=== PATIENT | male | born 1940 | race Caucasian/White ===

== ENCOUNTER → 2020-03-14 | Outpatient (CLI) | payer MEDICARE, BC ==
[~2020-03-14] MED LIST: ALBU2.5V8 IH; ASPI81TA59 PO; ATOR40TA59 PO; FLUT9.9S NS; FURO-69 PO; LISI-334 PO; METO25TA2 PO; OMEP40CA45 PO; SPIR25TA PO; TAMS0.4C97 PO
== END ==
LOC: LAB 07:52
PROVIDERS: ATTEND Registered Nurse
DX: Z11.59 Encounter for screening for other viral diseases (principal)
CPT/HCPCS: U0003-CS

== ENCOUNTER → 2020-03-18 | Day surgery (SDC) | payer MEDICARE, BC ==
[~2020-03-18] MED LIST changes: +IPRATRPIUM/ALBUTEROL 0.5/2.5MG 3 ML NEBU. NEB PRN; +IV RINGERS SOLUTION,LACTATED 1,000 ML IV SCH; +ONDANSETRON PF 4 MG/2 ML VIAL. IV PRN; +PROPOFOL 10,000 MCG/ML (20ML) VIAL IV ONE
[2020-03-18 10:35] VITALS: BP 116/79
--- NOTE | 2020-03-19 17:07 | PATHOLOGY ---
[facility] Accession Number: [id number] . 01 Material submitted: . PART A: duodenum - DUODENAL BIOPSY PART B: stomach - GASTRIC BIOPSY PART C: cecum - CECAL POLYP X2 PART D: colon - ASCENDING POLYP. Modifiers: ascending PART E: colon - TRANSVERSE POLYP. Modifiers: transverse . 02 Diagnosis: A. Duodenal biopsy: - No significant pathologic abnormalities. . B. Gastric biopsies: - Very mild chronic gastritis. . C. Colon biopsies, cecal polyp x2: - Tubular adenomas. . D. Colon biopsies, ascending colon polyp: - Tubular adenoma. . E. Colon biopsies, transverse colon polyp: - Tubular adenoma. (JPM:staci; 03/19/2020) [facility] [place] 03/19/2020 0921 Local . 02 Comment: Sections of the duodenal biopsy reveal a segment of small intestine mucosa. Where best oriented, the mucosal villi show no sprue-like changes or significant inflammatory changes. . Sections of the gastric biopsy reveal segments of gastric antral/body transition mucosa showing congestion and very mild chronic inflammation. A properly controlled immunoperoxidase stain for Helicobacter is negative for Helicobacter organisms. . Sections of the cecal biopsy reveal tubular adenomas showing no high grade dysplasia or evidence of malignancy. . Sections of the ascending colon biopsy reveal four segments of tubular adenoma showing no high grade dysplasia or evidence of malignancy. . Sections of the transverse colon biopsy reveal two segments of tubular adenoma showing no high grade dysplasia or evidence of malignancy. (JPM:staci 03/19/2020) . Special stain performed: Immunoperoxidase stain for Helicobacter on Electronically signed: . Epi Pat MD, Pathologist NPI- [id number] . 01 Gross description: . A. The specimen is received in formalin labeled "George Garcia, Walter, celiac anemia duodenal biopsy" and consists of a fragment of pink-zhang tissue measuring 0.3 x 0.3 x 0.3 cm which is entirely submitted in A1. . B. The specimen is received in formalin labeled "Walter Vazquez Jr, gastric biopsy anemia" and consists of a fragment of zhang tissue measuring 0.4 x 0.3 x 0.2 cm which is entirely submitted in B1. . C. The specimen is received in formalin labeled "Walter Vazquez Jr, cecal polyp" and consists of multiple polypoid segments of zhang tissue measuring 1.1 x 0.6 x 0.3 cm in aggregate which are entirely submitted in C1. . D. The specimen is received in formalin labeled "Walter Vazquez Jr, ascending polyps" and consists of multiple fragments of zhang tissue measuring 0.9 x 0.5 x 0.2 cm in aggregate which are entirely submitted in D1. . E. The specimen is received in formalin labeled "Walter Vazquez Jr, transverse polyp" and consists of multiple fragments of zhang tissue measuring 0.4 x 0.2 x 0.2 cm in aggregate which are entirely submitted in E1. (SHELDON; 03/18/2020) MARIA R/MARIA R 03/18/2020 1733 Local . 02 Pathologist provided ICD-10: K29.50, D12.0, D12.2, D12.3, Z12.11 . 02 CPT . 715530, 938905, 046745, 451423, 320533, C08260 Specimen Comment: A courtesy copy of this report has been sent to [phone], [phone] Specimen Comment: 0 Specimen Comment: Report sent to / DR ANDERSON Performed at: 01 [facility] [address] [facility] [address], [place] [id number] MD Ilia Avery MD Phone: [phone] Performed at: 02 [facility] [address] [place], [place] [id number] MD Epi Pat MD Phone: [phone]
== END | disposition home or self-care (01) ==
LOC: SURG 08:16
PROVIDERS: ATTEND Emergency Medicine
DX: D50.9 Iron deficiency anemia, unspecified (principal); D12.0 Benign neoplasm of cecum; D12.2 Benign neoplasm of ascending colon; D12.3 Benign neoplasm of transverse colon; K57.30 Diverticulosis of large intestine without perforation or abscess without bleeding; K29.50 Unspecified chronic gastritis without bleeding; K44.9 Diaphragmatic hernia without obstruction or gangrene; K31.89 Other diseases of stomach and duodenum; I10 Essential (primary) hypertension; I49.9 Cardiac arrhythmia, unspecified; J44.9 Chronic obstructive pulmonary disease, unspecified; K21.9 Gastro-esophageal reflux disease without esophagitis; F41.9 Anxiety disorder, unspecified; M19.90 Unspecified osteoarthritis, unspecified site; I48.91 Unspecified atrial fibrillation; F32.9 Major depressive disorder, single episode, unspecified; Z79.82 Long term (current) use of aspirin; Z79.899 Other long term (current) drug therapy; Z86.010 Personal history of colon polyps; Z98.890 Other specified postprocedural states
CPT/HCPCS: 43239; 45380; 45385; J2704; J7120; 88305; 88342

== ENCOUNTER → 2020-11-24 | Outpatient (CLI) | payer MEDICARE, BC ==
[2020-03-18 10:35] VITALS: BP 116/79
[~2020-11-24] MED LIST changes: -IPRATRPIUM/ALBUTEROL 0.5/2.5MG 3 ML NEBU. NEB PRN; -IV RINGERS SOLUTION,LACTATED 1,000 ML IV SCH; -LISI-334 PO; +LISI20TA18 PO; -ONDANSETRON PF 4 MG/2 ML VIAL. IV PRN; -PROPOFOL 10,000 MCG/ML (20ML) VIAL IV ONE
--- NOTE | 2020-11-24 16:30 | RAD ---
EXAM: Left upper extremity venous Doppler sonogram. HISTORY: Pain and swelling. TECHNIQUE: Hernandez scale and color Doppler sonographic evaluation of the left upper extremity veins with spectral waveform analysis was performed. FINDINGS: There is normal color flow, normal compressibility and there are normal spectral waveforms in the left upper extremity veins. IMPRESSION: No Doppler evidence of upper extremity venous thrombosis. Electronically signed by: Roseann Riggs MD (11/24/2020 4:27 PM) [id number]
== END ==
LOC: US 14:53
PROVIDERS: ATTEND Family Medicine
DX: I82.602 Acute embolism and thrombosis of unspecified veins of left upper extremity (principal)
CPT/HCPCS: 93971

== ENCOUNTER 2021-05-13 17:29 | Emergency (ER) | payer MEDICARE, BC ==
[~2021-05-13] VITALS: Ht 175.3 cm; Wt 94.5 kg
[~2021-05-13 17:29] MED LIST changes: -OMEP40CA45 PO; +OMEP40CA7 PO
[2021-05-13 17:45] VITALS: BP 110/77
[2021-05-13] MEDS ORDERED: ONDANSETRON PF 4 MG/2 ML VIAL. IVP ONE (18:30)
--- NOTE | 2021-05-13 18:31 | PHYS DOC ---
Past History Past Medical History: CHF Additional Past Medical Histor: BPH; lung fibrosis; orthostatic B/P Past Surgical History: Other Additional Past Surgical Histo: abd hernia; wrist fx repair; cataract; lymph node removal Alcohol Use: None General Adult EDM: Chief Complaint: CONSTIPATION HPI: HPI: Patient is an 80 year old male who presents with 2 day history of constipation. Also reports associated symptoms of nausea, vomiting x 1, lower abdominal pain, and rectal pain when trying to stool. He has attempted using several over the counter laxatives and stool softeners without relief. Denies any recent use of narcotic medications. History of one previous hernia repair but denies other abdominal surgeries. Denies fevers/chills, chest pain, or hematochezia. Review of Systems: Review of Systems: Constitutional: Denies fever or chills Eyes: Denies redness or eye pain HENT: Denies nasal congestion or sore throat Respiratory: Denies cough or shortness of breath Cardiovascular: Denies chest pain or palpitations GI: Reports abdominal pain, nausea, vomiting, and constipation : Denies dysuria or hematuria Musculoskeletal: Denies back pain or joint pain Integument: Denies rash or skin lesions Neurologic: Denies headache, focal weakness or sensory changes Complete systems were reviewed and found to be within normal limits, except as documented in this note. Allergies: Allergies: Allergies Coded Allergies Type Severity Reaction Last Updated Verified No Known Drug Allergies 05/13/21 No Physical Exam: PE: Constitutional: Well developed, well nourished, no acute distress, non-toxic appearance HENT: Normocephalic, atraumatic Eyes: PERRL, EOMI, conjunctiva normal, no discharge Neck: Normal range of motion, no tenderness, supple Lungs & Thorax: No respiratory distress, equal chest rise and fall Abdomen: Moderate tenderness to palpation over the lower abdomen. Soft. Rectal: Skin: Warm, dry, no erythema, no rash Back: No tenderness, no CVA tenderness Extremities: No tenderness, ROM intact, no edema Neurologic: Alert and oriented X 3, normal motor function, normal sensory f unction, no focal deficits noted Psychologic: Affect normal, judgment normal Current Patient Data: Vital Signs: Vital Signs Date Time Temp Pulse Resp B/P (MAP) Pulse Ox O2 Delivery O2 Flow Rate FiO2 05/13/21 17:45 95.0 100 18 110/77 96 Room Air EKG: EK: 100 BPM, rhythm irregularly irregular, occasional PVCs, no ST segment elevation, QRS 116ms, QT/QTc 382ms/496ms Radiology/Procedures: Radiology/Procedures: PROCEDURE: CT ABD PEL W/ORAL CONTRST ONLY CT abdomen pelvis without contrast dated 05/13/2021. No comparison available. Clinical indication: Abdominal pain nausea vomiting and constipation. TECHNIQUE: Contiguous axial imaging the abdomen pelvis performed after the administration of oral contrast only. One or more of the following individualized dose reduction techniques were utilized for this examination: 1. Automated exposure control 2. Adjustment of the mA and/or kV according to patient size 3. Use of iterative reconstruction technique FINDINGS: Limited images of lung bases show patchy and linear opacity in the lower lobes, likely atelectasis. Heart size mildly enlarged. No pleural or pericardial effusion. Coronary artery calcifications. Large hiatal hernia. Solid abdominal viscera not well evaluated in the absence of contrast material. No apparent attenuation abnormality of the liver or spleen. Pancreas is somewhat atrophic. Adrenal glands and kidneys are unremarkable. No stone or hydronephrosis. There are calcified stones at the gallbladder neck. Low-density focus at the midpole right kidney, likely cyst. Partially opacified GI tract normal in caliber and contour. No focal bowel wall thickening. Scattered diverticula throughout the colon. No paracolonic inflammatory changes. There is a moderate amount stool at the rectal vault. Appendix normal in caliber. No ascites or lymphadenopathy. Evidence of prior right inguinal hernia repair. There is evidence of prior ventral hernia repair. No recurrent hernia defect. There is a small lobule fat density in the central mesentery that likely is related to fat necrosis. Images of pelvis show nondistended urinary bladder. Prostate gland mildly enlarged. No free fluid or pelvic adenopathy. Bone windows show no acute findings. Multilevel spondylosis. IMPRESSION: 1. No acute abnormality of abdomen or pelvis. Normal appendix. 2. Diverticulosis with no evidence of acute diverticulitis. 3. Cholelithiasis. 4. Moderate size hiatal hernia. 5. Fecal distention of the rectal vault. Electronically signed by: Saba Garland MD (05/13/2021 8:12 PM) UIC-ROBE Heart Score: C/O Chest Pain: N/A Course & Med Decision Making: Course & Med Decision Making 80 year old male presents with 2 day history of constipation and worsening abdominal pain. Labs and imaging obtained and posted to chart. CT imaging revealed a large amount of stool in the rectal vault and the patient was manually disimpacted with some relief of symptoms. Patient stable for discharge with outpatient follow-up with PCP. Discussed findings and plan with patient, who acknowledges understanding and agreement. [place] Disclaimer: Dragon Disclaimer: This electronic medical record was generated, in whole or in part, using a voice recognition dictation system. Departure Departure: Impression: Primary Impression: Fecal impaction in rectum Additional Impression: Nausea & vomiting Qualified Codes: R11.2 - Nausea with vomiting, unspecified Disposition: HOME / SELF CARE / HOMELESS Condition: STABLE Referrals: ERIC ANDERSON MD (PCP) Patient Instructions: Constipation, Adult, [id number], Fecal Impaction, Nausea and Vomiting, [id number] Additional Instructions: Take stool softener ("Colace 2 in 1" or "Pericolace") at night with 8oz glass of water to prevent constipation. Take laxative (GO-LYTELY) as needed if symptoms persist without adequate bowel movement Scripts Ondansetron (ONDANSETRON ODT) 4 Mg Tab.rapdis 1 TAB PO PRN Q6-8HRS PRN for NAUSEA, #16 TAB Prov: SABA HOLMAN DO 05/13/21 Sennosides/Docusate Sodium (Colace 2-in-1 Tablet) 1 Each Tablet 1-2 TAB PO QHS for Constipation prevention, #30 TAB 0 Refills Prov: SABA HOLMAN DO 05/13/21 Peg 3350/Na Sulf,Bicarb,Cl/Kcl (GOLYTELY SOLUTION) 4,000 Ml Soln.recon 4000 ML PO 1X PRN for CONSTIPATION, #4000 ML Prov: SABA HOLMAN DO 05/13/21 SABA HOLMAN DO May 13, 2021 18:31
[2021-05-13] MEDS ORDERED: IOHEXOL 240 MG/ML 50ML VIAL. ONE (18:38)
[2021-05-13 19:00] LABS: BASO # 0.1 x10^3/uL (0.0-0.2); BASO % 1 % (0-3); EOS # 0.1 x10^3/uL (0.0-0.7); EOS % 1 % (0-3); HEMOGLOBIN 14.1 g/dL (13.0-17.5); LYMPH # 1.2 x10^3/uL (1.0-4.8); LYMPH % 12 % (24-48); MEAN CORPUSCULAR HEMOGLOBIN 28 pg (25-35); MEAN CORPUSCULAR HGB CONC 33 g/dL (31-37); MEAN CORPUSCULAR VOLUME 85 fL (79-100); MONO % 10 % (0-9); NEUT # 7.3 x10^3uL (1.8-7.7); NEUT % 75 % (31-73); PLATELET COUNT 290 x10^3/uL (140-400); RED BLOOD COUNT 5.03 x10^6/uL (4.30-5.70); RED CELL DISTRIBUTION WIDTH 15.8 % (11.5-14.5); WHITE BLOOD COUNT 9.8 x10^3/uL (4.0-11.0)
[2021-05-13 19:18] LABS: CALCIUM 8.8 mg/dL (8.5-10.1); CREATININE 1.8 mg/dL (0.7-1.3); GFR 36.4; POTASSIUM 3.8 mmol/L (3.5-5.1)
[2021-05-13 19:53] LABS: ALBUMIN 3.7 g/dL (3.4-5.0); MAGNESIUM 2.1 mg/dL (1.8-2.4); TOTAL BILIRUBIN 0.5 mg/dL (0.2-1.0); TOTAL PROTEIN 7.5 g/dL (6.4-8.2)
--- NOTE | 2021-05-13 20:15 | RAD ---
CT abdomen pelvis without contrast dated 05/13/2021. No comparison available. Clinical indication: Abdominal pain nausea vomiting and constipation. TECHNIQUE: Contiguous axial imaging the abdomen pelvis performed after the administration of oral contrast only. One or more of the following individualized dose reduction techniques were utilized for this examinat ion: 1. Automated exposure control 2. Adjustment of the mA and/or kV according to patient size 3. Use of iterative reconstruction technique FINDINGS: Limited images of lung bases show patchy and linear opacity in the lower lobes, likely atelectasis. H eart size mildly enlarged. No pleural or pericardial effusion. Coronary artery calcifications. Large hiatal hernia. Solid abdominal viscera not well evaluated in the absence of contrast material. No apparent attenuati on abnormality of the liver or spleen. Pancreas is somewhat atrophic. Adrenal glands and kidneys are unremarkable. No stone or hydronephrosis. There are calcified stones at the gallbladder neck. Low-den sity focus at the midpole right kidney, likely cyst. Partially opacified GI tract normal in caliber and contour. No focal bowel wall thickening. Scattered diverticula throughout the colon. No paracolonic inflammatory changes. There is a moderate amount st ool at the rectal vault. Appendix normal in caliber. No ascites or lymphadenopathy. Evidence of prior right inguinal hernia repair. There is evidence of prior ventral hernia repair. No recurrent hernia defect. There is a small lobule fat density in the central mesentery that likely is related to fat ne crosis. Images of pelvis show nondistended urinary bladder. Prostate gland mildly enlarged. No free fluid or pelvic adenopathy. Bone windows show no acute findings. Multilevel spondylosis. IMPRESSION: 1. No acute abnormality of abdomen or pelvis. Normal appendix. 2. Diverticulosis with no evidence of acute diverticulitis. 3. Cholelithiasis. 4. Moderate size hiatal hernia. 5. Fecal distention of the rectal vault. Electronically signed by: Sidney Garland MD (05/13/2021 8:12 PM) [facility]
[2021-05-13] MEDS ORDERED: PEG4000S8 PO (20:49)
[2021-05-13] MEDS ORDERED: SENN-121 PO (20:49)
[2021-05-13] MEDS ORDERED: ONDA4TAB12 PO (20:50)
[2021-05-13 21:00] LABS: CLARITY,URINE CLEAR; COLOR,URINE YELLOW
[2021-05-13 21:01] LABS: BACTERIA,URINE 0 /HPF (0-FEW); BILIRUBIN,URINE NEG (NEG); GLUCOSE,URINE NEG (NEG); HYALINE CASTS, URINE FEW /HPF; NITRITE,URINE NEG (NEG); RBC,URINE 0 /HPF (0-2); SQUAMOUS EPITHELIAL CELL,UR FEW /LPF; UROBILINOGEN,URINE 0.2 mg/dL (0.2 mg/dL); WBC,URINE 0 /HPF (0-4)
--- NOTE | 2021-05-14 04:46 | EKG ---
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
== END 2021-05-13 21:11 | disposition home or self-care (01) ==
LOC: ER 17:29
DX: K56.41 Fecal impaction (principal); R11.2 Nausea with vomiting, unspecified; I50.9 Heart failure, unspecified
CPT/HCPCS: 36415; 74176; 80053; 81001; 82553; 83605; 83690; 83735; 84484; 85025; 93005; 96374; 96375; 99285; J2060; J2405

== ENCOUNTER → 2021-05-27 | Outpatient (CLI) | payer MEDICARE, BC ==
[2021-05-13 17:45] VITALS: BP 110/77
[~2021-05-27] MED LIST changes: +ONDA4TAB12 PO; +PEG4000S8 PO; +SENN-121 PO
[2021-05-27 11:57] LABS: BASO # 0.1 x10^3/uL (0.0-0.2); BASO % 1 % (0-3); EOS # 0.2 x10^3/uL (0.0-0.7); EOS % 3 % (0-3); HEMATOCRIT 37.7 % (39.0-53.0); HEMOGLOBIN 12.2 g/dL (13.0-17.5); LYMPH # 1.7 x10^3/uL (1.0-4.8); LYMPH % 21 % (24-48); MEAN CORPUSCULAR HEMOGLOBIN 28 pg (25-35); MEAN CORPUSCULAR HGB CONC 32 g/dL (31-37); MEAN CORPUSCULAR VOLUME 86 fL (79-100); MONO # 0.8 x10^3/uL (0.0-1.1); MONO % 10 % (0-9); NEUT # 5.4 x10^3uL (1.8-7.7); NEUT % 66 % (31-73); PLATELET COUNT 229 x10^3/uL (140-400); RED BLOOD COUNT 4.37 x10^6/uL (4.30-5.70); WHITE BLOOD COUNT 8.2 x10^3/uL (4.0-11.0)
[2021-05-27 12:16] LABS: CALCIUM 8.6 mg/dL (8.5-10.1); CREATININE 1.5 mg/dL (0.7-1.3); GFR 44.9; POTASSIUM 3.7 mmol/L (3.5-5.1)
== END ==
LOC: LAB 10:53
PROVIDERS: ATTEND Internal Medicine
DX: I50.33 Acute on chronic diastolic (congestive) heart failure (principal)
CPT/HCPCS: 36415; 80048; 85025

== ENCOUNTER → 2021-07-03 | Outpatient (CLI) | payer MEDICARE, BC ==
[2021-07-03 09:51] LABS: CALCIUM 8.9 mg/dL (8.5-10.1); CREATININE 1.1 mg/dL (0.7-1.3); GFR 64.2; POTASSIUM 4.2 mmol/L (3.5-5.1)
== END ==
LOC: LAB 09:12
PROVIDERS: ATTEND Internal Medicine
DX: I25.10 Atherosclerotic heart disease of native coronary artery without angina pectoris (principal)
CPT/HCPCS: 36415; 80048

== ENCOUNTER → 2021-12-09 | Outpatient (CLI) | payer MEDICARE, BC ==
[2021-12-09 14:57] LABS: BASO # 0.1 x10^3/uL (0.0-0.2); BASO % 1 % (0-3); EOS # 0.2 x10^3/uL (0.0-0.7); EOS % 2 % (0-3); HEMOGLOBIN 12.3 g/dL (13.0-17.5); LYMPH % 24 % (24-48); MEAN CORPUSCULAR HEMOGLOBIN 26 pg (25-35); MEAN CORPUSCULAR HGB CONC 32 g/dL (31-37); MEAN CORPUSCULAR VOLUME 83 fL (79-100); MONO # 0.8 x10^3/uL (0.0-1.1); MONO % 10 % (0-9); NEUT # 5.1 x10^3uL (1.8-7.7); NEUT % 62 % (31-73); PLATELET COUNT 241 x10^3/uL (140-400); RED BLOOD COUNT 4.71 x10^6/uL (4.30-5.70); WHITE BLOOD COUNT 8.3 x10^3/uL (4.0-11.0)
[2021-12-09 15:01] LABS: CALCIUM 9.2 mg/dL (8.5-10.1); CREATININE 1.4 mg/dL (0.7-1.3); GFR 48.5; POTASSIUM 4.8 mmol/L (3.5-5.1)
== END ==
LOC: LAB 13:57
PROVIDERS: ATTEND Internal Medicine
DX: I50.33 Acute on chronic diastolic (congestive) heart failure (principal)
CPT/HCPCS: 36415; 80048; 85025